=== PATIENT | female | born 1970 | race Caucasian/White ===

== ENCOUNTER 2022-07-11 08:00 | Emergency (ER) | payer OTHER, SELFPAY ==
[2022-07-11] VITALS (17 sets, daily range): BP systolic 114–168; BP diastolic 69–97; PULSE 66–105; RESP 13–24; TEMP 36.3–36.4; O2SAT 98–100
--- NOTE | 2022-07-11 08:29 | ED.ALLEREA ---
HPI - Allergic Reaction General Chief complaint: Allergic Reaction Stated complaint: Allergic Reaction Time Seen by Provider: 07/11/22 08:26 Source: patient Mode of arrival: ambulatory Limitations: no limitations History of Present Illness HPI narrative: Patient is 52 years old white female drove herself to the emergency room because of itching skin rash, hives noticed while driving her car going to work. Started on Cipro and venlafaxine yesterday for the first time for urinary tract infection and depression she denies any difficulty swallowing or shortness of breath MD complaint: hives Related Data Allergies Allergy/AdvReac Type Severity Reaction Status Date / Time Penicillins Allergy Mild Rash Verified 07/11/22 08:28 Sulfa (Sulfonamide Allergy Mild Rash Verified 07/11/22 08:28 Antibiotics) sulfamethoxazole Allergy Mild Rash Verified 07/11/22 08:28 [From Bactrim] trimethoprim [From Bactrim] Allergy Mild Rash Verified 07/11/22 08:28 thimerosal Allergy Unknown Verified 07/11/22 08:28 bupropion AdvReac Severe Other Verified 07/11/22 08:28 Review of Systems Review of Systems: All systems reviewed & are unremarkable except as noted in HPI and below PMFSH Past Medical History Medical History Hx of temporomandibular joint disorder Surgical History Surgical History Hx of section Hx of hernia repair Hx of mastectomy Family History Family History Mother Hypertension Dementia Father Hypertension Grandparent Carcinoma of colon Lung cancer Bone cancer Social History Social History Smoking packs per day: 1 Smoking cigarettes per day: 20.0 Years smoked: 40 Smoking pack-years: 40.00 Smoking status: Current every day smoker Tobacco type: cigarettes Second hand tobacco smoke exposure: No Alcohol intake: current Alcohol use details: Socially Substance use: never Substance use type: does not use Living arrangements: with family Occupation/Education: occupation Gender identity (if verbalized by the patient): Female Sexual Orientation (if Verbalized by the Patient): Straight or Heterosexual Spiritual care concerns: No Exam Narrative: General appearance: Well-developed, well-nourished Skin: Normal color, scattered hives on the legs Head: Normocephalic, nontraumatic Eyes: Clear conjunctiva ENT: Oropharynx normal, ears normal, nose normal Neck: Supple, nontender Chest and respiratory: Airway patent, no respiratory distress, no accessory muscle use Heart: Regular rate/rhythm Abdomen: Soft, nontender, no organomegaly, quiet bowel sounds Vascular: Normal peripheral pulses, normal capillary refill. Musculoskeletal: Normal range of motion, nontender back Neurologic: Alert and oriented ?3, FORENSICS ANALYST is normal as tested, no gross motor deficit Course Reevaluation(s) Reevaluation #1: Less itching after epinephrine, prednisone and Benadryl Date: 07/11/22 Time: 09:30 Vital Signs Vital signs: Vital Signs Temperature 36.4 C L 07/11/22 08:06 Pulse Rate 105 H 07/11/22 08:06 Respiratory Rate 19 07/11/22 08:06 Blood Pressure 168/90 H 07/11/22 08:06 Pulse Oximetry 98 07/11/22 08:06 Oxygen Delivery Room Air 07/11/22 08:06 Temperature 36.4 C L 07/11/22 08:06 Pulse Rate 86 07/11/22 09:46 Respiratory Rate 15 07/11/22 09:46 Blood Pressure 114/71 07/11/22 09:46 Pulse Oximetry 100 07/11/22 09:46 Oxygen Delivery Room Air 07/11/22 08:06 MDM - Allergic Reacti
[2022-07-11] MEDS: diphenhydrAMINE HCl CAP 25 MG CAPSULE 50 MG PO (08:52)
[2022-07-11] MEDS: predniSONE 20 MG TABLET 60 MG PO (08:52)
[2022-07-11] MEDS: EPINEPHrine HCL INJ 1 MG/ML AMPUL 0.3 MG IM (08:56)
== END 2022-07-11 10:48 | disposition home or self-care (01) ==
PROVIDERS: Emergency Provider Emergency Medicine; PCP Family Medicine Adolescent Medicine
DX: T78.40XA Allergy, unspecified, initial encounter (principal); X58.XXXA Exposure to other specified factors, initial encounter; F17.210 Nicotine dependence, cigarettes, uncomplicated
CPT/HCPCS: 96372; 99283; A9270; J0171; J7512